=== PATIENT | female | born 1955 | race Two or more races ===

== ENCOUNTER 2018-08-13 18:23 | Emergency (ER) | payer MEDICAID ==
[~2018-08-13] VITALS: Ht 162.6 cm; Wt 71.7 kg
[2018-08-13 21:15] VITALS: BP 121/67
[2018-08-13] MEDS ORDERED: HYDROcodone-ACET 10/325MG TAB PO ONE (21:30)
[2018-08-13] MEDS ORDERED: BACLOFEN 10 MG TAB PO ONE (21:30)
== END 2018-08-13 22:07 | disposition home or self-care (01) ==
LOC: EDBD 18:23 → ER 18:29
DX: S90.31XA Contusion of right foot, initial encounter (principal); M62.838 Other muscle spasm; M54.2 Cervicalgia; M25.512 Pain in left shoulder; M25.511 Pain in right shoulder; M19.90 Unspecified osteoarthritis, unspecified site; Z88.5 Allergy status to narcotic agent; Z88.0 Allergy status to penicillin; Z88.6 Allergy status to analgesic agent; V49.49XA Driver injured in collision with other motor vehicles in traffic accident, initial encounter; Y93.89 Activity, other specified; Y99.8 Other external cause status; Y92.89 Other specified places as the place of occurrence of the external cause
CPT/HCPCS: 70450; 72125; 73502; 73620; 99284; L3260